=== PATIENT | male | born 1975 | race Caucasian/White ===

== ENCOUNTER → 2016-11-28 | Outpatient (CLI) | payer OTHER ==
[2016-11-28 19:17] LABS: FSH 3.1 mIU/mL (1.5-12.4); LUTEINIZING HORMONE 2.6 mIU/mL (1.7-8.6); PROLACTIN 10.2 ng/mL (4.0-15.2)
== END | disposition home or self-care (01) ==
LOC: LAB 08:58
PROVIDERS: ATTEND Family Medicine
DX: E29.1 Testicular hypofunction (principal)
CPT/HCPCS: 36415; 83001; 83002; 84146

== ENCOUNTER → 2017-07-09 | Day surgery (SDC) | payer OTHER ==
[~2017-07-09] MED LIST: PROPOFOL 20 ML IV; PROPOFOL 40 ML IV
== END ==
LOC: ENDOS 11:06
DX: K63.5 Polyp of colon (principal); K64.0 First degree hemorrhoids; K21.9 Gastro-esophageal reflux disease without esophagitis
CPT/HCPCS: 45380; 88305; J2704

== ENCOUNTER → 2018-04-20 | Outpatient (CLI) | payer OTHER ==
[2017-07-09 13:39] VITALS: BP 104/64
[~2018-04-20] MED LIST changes: +OMEG1CAP6 PO; +PNV#1COM7 PO; -PROPOFOL 20 ML IV; -PROPOFOL 40 ML IV
[2018-04-20 09:13] LABS: BASO % 1 % (0-3); EOS # 0.5 x10^3/uL (0.0-0.7); EOS % 7 % (0-3); HEMATOCRIT 45.7 % (39.0-53.0); LYMPH # 1.6 x10^3/uL (1.0-4.8); LYMPH % 22 % (24-48); MEAN CORPUSCULAR HEMOGLOBIN 30 pg (25-35); MEAN CORPUSCULAR HGB CONC 35 g/dL (31-37); MEAN CORPUSCULAR VOLUME 86 fL (79-100); MONO # 0.5 x10^3/uL (0.0-1.1); MONO % 7 % (0-9); NEUT # 4.7 x10^3uL (1.8-7.7); NEUT % 64 % (31-73); PLATELET COUNT 184 x10^3/uL (140-400); RED BLOOD COUNT 5.34 x10^6/uL (4.30-5.70); RED CELL DISTRIBUTION WIDTH 13.5 % (11.5-14.5); WHITE BLOOD COUNT 7.3 x10^3/uL (4.0-11.0)
[2018-04-20 09:35] LABS: ALBUMIN 4.4 g/dL (3.4-5.0); ALBUMIN/GLOBULIN RATIO 1.2 (1.0-1.7); CREATININE 1.2 mg/dL (0.7-1.3); GFR 67.1; POTASSIUM 4.3 mmol/L (3.5-5.1); TOTAL BILIRUBIN 0.9 mg/dL (0.2-1.0); TOTAL PROTEIN 8.1 g/dL (6.4-8.2)
[2018-04-20 09:37] LABS: CHOLESTEROL/HDL RATIO 3.5
[2018-04-20 09:46] LABS: FREE T4 0.93 ng/dL (0.76-1.46); THYROID STIM HORMONE (TSH) 1.646 uIU/mL (0.358-3.74)
== END | disposition home or self-care (01) ==
LOC: LAB 08:46
PROVIDERS: ATTEND Nurse Practitioner Family
DX: E78.5 Hyperlipidemia, unspecified (principal); R53.83 Other fatigue
CPT/HCPCS: 36415; 80053; 80061; 82306; 82607; 82746; 83540; 83550; 84439; 84443; 85025; 86644; 86645; 86663; 86664

== ENCOUNTER → 2020-03-23 | Outpatient (CLI) | payer OTHER ==
[2017-07-09 13:39] VITALS: BP 104/64
== END ==
LOC: LAB 07:12
PROVIDERS: ATTEND Internal Medicine Pulmonary Disease
DX: R09.81 Nasal congestion (principal); Z20.828 Contact with and (suspected) exposure to other viral communicable diseases
CPT/HCPCS: U0003

== ENCOUNTER → 2020-09-19 | Outpatient (CLI) | payer OTHER ==
[2017-07-09 13:39] VITALS: BP 104/64
[2020-09-19 09:47] LABS: ALBUMIN 4.5 g/dL (3.4-5.0); ALBUMIN/GLOBULIN RATIO 1.5 (1.0-1.7); CALCIUM 8.5 mg/dL (8.5-10.1); CREATININE 1.1 mg/dL (0.7-1.3); GFR 73.1; POTASSIUM 4.2 mmol/L (3.5-5.1); TOTAL BILIRUBIN 0.7 mg/dL (0.2-1.0); TOTAL PROTEIN 7.6 g/dL (6.4-8.2)
[2020-09-19 09:52] LABS: CHOLESTEROL/HDL RATIO 4.5
== END ==
LOC: LAB 08:54
PROVIDERS: ATTEND Family Medicine
DX: E55.9 Vitamin D deficiency, unspecified (principal); F41.1 Generalized anxiety disorder; E78.5 Hyperlipidemia, unspecified
CPT/HCPCS: 36415; 80053; 80061; 82306; 84436; 84443

== ENCOUNTER 2020-10-04 09:13 | Day surgery (SDC) | payer OTHER ==
[~2020-10-04] VITALS: Ht 190.5 cm; Wt 95.0 kg
[~2020-10-04 09:13] MED LIST changes: +ACETAMINOPHEN 500 MG TABLET PO PRN; +HYDROmorphone 2 MG/ML VIAL IVP PRN; +IV RINGERS,LACTATED 1000ML 1,000 ML IV SCH; +MORPHINE SULFATE 2 MG/ML VIAL. IVP PRN; +PROCHLORPERAZINE 10 MG/2 ML VIAL. IVP PRN; +fentaNYL PF VIAL 100 MCG/2 ML VIAL IVP PRN
[2020-10-04 09:30] VITALS: BP 117/69
[2020-10-04] MEDS ORDERED: LIDOCAINE 1% PF 5 ML VIAL. ONE (09:58)
[2020-10-04] MEDS ORDERED: PROPOFOL 10 MG/ML (20ML) VIAL. IV ONE (09:58)
[2020-10-04] MEDS ORDERED: fentaNYL PF VIAL 100 MCG/2 ML VIAL ONE ×2 (09:59→11:28)
[2020-10-04] MEDS ORDERED: SCOPOLAMINE 1.5MG PATCH. TD ONE ×2 (10:26→10:30)
[2020-10-04] MEDS ORDERED: BUPIVACAINE-EPI 0.25% 30 ML VIAL KIT. ONE (10:38)
[2020-10-04] MEDS ORDERED: NEOMY/BACITR/POLYMYXIN OINT PACKET. TP ONE ×2 (10:38→10:52)
[2020-10-04] MEDS ORDERED: BUPIVACAINE-EPI 0.25% 30 ML VIAL KIT. INJ ONE ×2 (10:52)
[2020-10-04] MEDS ORDERED: SEVOFLURANE 31 TO 60 MINUTES. IH ONE (10:54)
[2020-10-04] MEDS ORDERED: ONDANSETRON PF 4 MG/2 ML VIAL. ONE (10:54)
--- NOTE | 2020-10-04 11:02 | PDOC4 ---
Operative Note Operative Note Date: October 042020 at 1100 Preoperative diagnosis: Internal and external hemorrhoids Postoperative diagnosis: Same Procedure: Hemorrhoidectomy Surgeon: Danish Specimen: Hemorrhoid Dictation: Patient is a 45-year-old male with complaints of hemorrhoids with pain and bleeding on occasion and episode of thrombosis. Procedure of hemorrhoidectomy was explained to the patient detail risk benefits were also discussed including bleeding infection alternatives to this procedure also discussed with the patient who seemed to understand and gave verbal and written consent to have the procedure performed. Patient was taken to the operating room placed in the supine position general anesthesia was initiated once patient was sleeping intubated he was placed in lithotomy positioning and his perineum was prepped and draped usual sterile fashion using Betadine scrub and solution. An area around the hemorrhoid at the 7 o'clock position was injected with quarter percent Marcaine with epinephrine the hemorrhoid was grasped with an Allis clamp and the external hemorrhoid as well as internal hemorrhoid this area were excised sharply with the harmonic scalpel providing hemostasis. Hemorrhoid was sent for pathology. Wound was dressed with antibiotic ointment ABD and mesh briefs. Patient was awakened and extubated in the operating room taken to recovery in stable condition all sponge instrument needle counts listed as correct estimated blood loss 5 mL. KARAN KELLOGG MD October 04, 2020 11:02
--- NOTE | 2020-10-04 11:04 | DISCH ---
DISCHARGE INSTRUCTIONS Condition on Discharge Condition on Discharge: Stable Activity After Discharge Activity Instructions for Disc: Avoid exertion Other activity instructions: No strenuous activity for 2 weeks Diet after Discharge Diet after Discharge: Regular Wound Incision Care Other wound/incision instructi: Olga shower in 24 hours Contacting the after DC Call your doctor for: If your condition worsens Follow-Up Follow up with: Dr. Kellogg in 2 weeks KARAN KELLOGG MD October 04, 2020 11:04
[2020-10-04] MEDS ORDERED: OXYC-325 PO (11:51)
[2020-10-04] MEDS ORDERED: oxyCODONE/APAP 5/325 1 TAB TABLET PO ONE ×2 (12:00)
[2020-10-04 12:35] VITALS: BP 110/65
--- NOTE | 2020-10-10 09:11 | PATHOLOGY ---
[facility] Accession Number: [id number] . 01 Material submitted: . hemorrhoids - HEMORRHOIDS . 01 Clinical history: . HEMORRHOIDECTOMY . 02 Diagnosis: Segment of skin and anal mucosa and underlying fibromuscular tissue, hemorrhoidectomy: - Hemorrhoids. (ABEM:toi; 10/09/2020) MBR 10/09/2020 2017 Local . 02 Electronically signed: . Ganesh Yoo MD, Pathologist NPI- [id number] . 01 Gross description: . Received in formalin labeled "Primo, Jose, hemorrhoids" is a portion of leigh-brown wrinkled skin and mucosa measuring 2.7 x 2.5 x 1.7 cm. The specimen is sectioned to reveal hemorrhage and dilated blood vessels on cut surface. 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 [place] [place]06/2020) [facility] 10/06/2020 1347 Local . 02 Pathologist provided ICD-10: K64.9 . 02 CPT . 732804 Specimen Comment: A courtesy copy of this report has been sent to [phone] Specimen Comment: Report sent to Specimen Comment: A duplicate report has been generated due to demographic updates. Performed at: 01 [facility] [address], [place] [id number] MD [place] MD Phone: [phone] Performed at: 02 [facility] [address] [place], [place] [id number] MD Ganesh Yoo MD Phone: [phone]
== END 2020-10-04 13:00 | disposition home or self-care (01) ==
LOC: SURG 09:13
PROVIDERS: ATTEND Surgery
DX: K64.8 Other hemorrhoids (principal); K64.5 Perianal venous thrombosis; K64.9 Unspecified hemorrhoids; K21.9 Gastro-esophageal reflux disease without esophagitis; M19.90 Unspecified osteoarthritis, unspecified site; Z79.899 Other long term (current) drug therapy; Z98.890 Other specified postprocedural states; Z72.89 Other problems related to lifestyle
CPT/HCPCS: 46255; 88304; A4930; A6253; J0690; J0780; J2405; J2704; J3010; J3490

== ENCOUNTER 2021-04-20 21:34 | Emergency (ER) | payer OTHER ==
[~2021-04-20] VITALS: Ht 182.9 cm; Wt 80.0 kg
[~2021-04-20 21:34] MED LIST changes: -ACETAMINOPHEN 500 MG TABLET PO PRN; -HYDROmorphone 2 MG/ML VIAL IVP PRN; -IV RINGERS,LACTATED 1000ML 1,000 ML IV SCH; -MORPHINE SULFATE 2 MG/ML VIAL. IVP PRN; +OXYC-325 PO; -PROCHLORPERAZINE 10 MG/2 ML VIAL. IVP PRN; -fentaNYL PF VIAL 100 MCG/2 ML VIAL IVP PRN
[2021-04-20] MEDS ORDERED: IV NORMAL SALINE 1000ML BAG 1,000 ML IV ONE ×2 (22:15→23:15)
--- NOTE | 2021-04-20 22:19 | ED.ADGEN ---
General Adult EDM: Chief Complaint: RAPID HEART RATE HPI: HPI: Patient is a 45 year old male coming in for palpitations and rapid heart rate. He states he noticed the symptoms about 6 hours prior to evaluation. Is denies any chest pain or pressure but just feels his heart racing. Patient was out hunting earlier and states he not been drinking much water. Patient drank a can of Mountain Dew and a couple sips of an energy drink. Denies any cardiac history. Denies any medical history or regular medication use. Denies any supplement use. Denies any tobacco, alcohol, or drugs. Has had his Covid vaccines and booster, has had his influenza vaccine. Denies any recent illness. Denies any vomiting or diarrhea Review of Systems: Review of Systems: All other systems within normal limits except for as noted in the HPI Current Medications: Current Medications Medications (Trade) Dose Ordered Sig/Lee Start Time Stop Time Status Last Admin Dose Admin Info (CONTRAST GIVEN -- Rx MONITORING) 1 each PRN DAILY PRN 04/20/21 23:30 04/22/21 23:29 Iohexol (Omnipaque 350 Mg/ml) 100 ml 1X ONCE 04/20/21 23:30 04/20/21 23:31 DC 04/20/21 23:38 100 ML Sodium Chloride 1,000 ml @ 1,000 mls/hr 1X ONCE 04/20/21 23:15 04/21/21 00:14 DC 04/20/21 00:07 1,000 MLS/HR Allergies: Allergies: Allergies Coded Allergies Type Severity Reaction Last Updated Verified No Known Drug Allergies 10/04/20 No Physical Exam: PE: Constitutional: Well developed, well nourished, no acute distress, non-toxic appearance. [] HENT: Normocephalic, atraumatic, bilateral external ears normal, nose normal. [] Eyes: PERRLA, conjunctiva normal, no discharge. [] Neck: No rigidity, supple, no stridor. [] Cardiovascular: Cardiac, regular rhythm, brisk cap refill [] Lungs & Thorax: Non labored symmetric respirations, no tachypnea or respiratory distress [] Abdomen: Soft, nondistended. Skin: Warm, dry, no erythema, no rash. [] Back: Unremarkable Extremities: No deformities, range of motion grossly intact, no lower extremity edema [] Neurologic: Alert and oriented X 3, no focal deficits noted. [] Psychologic: Affect normal, judgement normal, mood normal. [] Current Patient Data: Labs: Laboratory Tests Test 04/20/21 22:10 04/20/21 22:50 04/20/21 23:35 White Blood Count 14.5 x10^3/uL (4.0-11.0) H Red Blood Count 5.35 x10^6/uL (4.30-5.70) Hemoglobin 15.4 g/dL (13.0-17.5) Hematocrit 45.5 % (39.0-53.0) Mean Corpuscular Volume 85 fL (79-100) Mean Corpuscular Hemoglobin 29 pg (25-35) Mean Corpuscular Hemoglobin Concent 34 g/dL (31-37) Red Cell Distribution Width 14.5 % (11.5-14.5) Platelet Count 260 x10^3/uL (140-400) Neutrophils (%) (Auto) 71 % (31-73) Lymphocytes (%) (Auto) 17 % (24-48) L Monocytes (%) (Auto) 9 % (0-9) Eosinophils (%) (Auto) 2 % (0-3) Basophils (%) (Auto) 1 % (0-3) Neutrophils # (Auto) 10.3 x10^3/uL (1.8-7.7) H Lymphocytes # (Auto) 2.5 x10^3/uL (1.0-4.8) Monocytes # (Auto) 1.3 x10^3/uL (0.0-1.1) H Eosinophils # (Auto) 0.3 x10^3/uL (0.0-0.7) Basophils # (Auto) 0.1 x10^3/uL (0.0-0.2) D-Dimer (Sarah) 0.38 ug/mlFEU (0.00-0.50) Sodium Level 142 mmol/L (136-145) Potassium Level 3.5 mmol/L (3.5-5.1) Chloride Level 104 mmol/L (98-107) Carbon Dioxide Level 25 mmol/L (21-32) Anion Gap 13 (6-14) Blood Urea Nitrogen 16 mg/dL (8-26) Creatinine 1.0 mg/dL (0.7-1.3) Estimated GFR (Cockcroft-Gault) 81.6 BUN/Creatinine Ratio 16 (6-20) Glucose Level 91 mg/dL (70-99) Calcium Level 8.9 mg/dL (8.5-10.1) Phosphorus Level 4.0 mg/dL (2.6-4.7) Magnesium Level 2.3 mg/dL (1.8-2.4) Total Bilirubin 1.5 mg/dL (0.2-1.0) H Aspartate Amino Transferase (AST) 15 U/L (15-37) Alanine Aminotransferase (ALT) 29 U/L (16-63) Alkaline Phosphatase 68 U/L (46-116) Troponin I High Sensitivity 27 ng/L (4-75) UO-Jcb-T-Type Natriuretic Peptide 42 pg/mL (0-124) Total Protein 7.3 g/dL (6.4-8.2) Albumin 4.0 g/dL (3.4-5.0) Albumin/Globulin Ratio 1.2 (1.0-1.7) Thyroid Stimulating Hormone (TSH) 2.276 uIU/mL (0.358-3.74) Lactic Acid Level 0.7 mmol/L (0.4-2.0) Urine Collection Type Unknown Urine Color Yellow Urine Clarity Cloudy Urine pH 5.5 (<5.0-8.0) Urine Specific Comer <=1.005 (1.000-1.030) Urine Protein Negative mg/dL (NEG-TRACE) Urine Glucose (UA) Negative mg/dL (NEG) Urine Ketones (Stick) Trace mg/dL (NEG) Urine Blood Negative (NEG) Urine Nitrite Negative (NEG) Urine Bilirubin Negative (NEG) Urine Urobilinogen Dipstick 0.2 mg/dL (0.2 mg/dL) Urine Leukocyte Esterase Negative (NEG) Urine RBC 0 /HPF (0-2) Urine WBC 0 /HPF (0-4) Urine Squamous Epithelial Cells None /LPF Urine Bacteria 0 /HPF (0-FEW) Urine Mucus Slight /LPF Urine Opiates Screen Neg (NEG) Urine Methadone Screen Neg (NEG) Urine Barbiturates Neg (NEG) Urine Phencyclidine Screen Neg (NEG) Urine Amphetamine/Methamphetamine Neg (NEG) Urine Benzodiazepines Screen Neg (NEG) Urine Cocaine Screen Neg (NEG) Urine Cannabinoids Screen Neg (NEG) Urine Ethyl Alcohol Neg (NEG) Laboratory Tests 04/20/21 22:10 Laboratory Tests 04/20/21 22:10 Vital Signs: Vital Signs Date Time Temp Pulse Resp B/P (MAP) Pulse Ox O2 Delivery O2 Flow Rate FiO2 04/20/21 21:50 98.5 142 22 102/75 (84) 98 Room Air 98.5 EKG: EKG: Tachycardic rhythm, 140 bpm, normal axis, no ST elevation or depression [] Heart Score: C/O Chest Pain: No HEART Score for Chest Pain: HEART Score for Chest Pain Response (Comments) Value History Slighlty/Non-Suspicious 0 ECG Nonspecific Repolarizatio 1 Age < 45 0 Risk Factors No Risk Factors 0 Troponin < Normal Limit 0 Total 1 Risk Factors: Risk Factors: DM, Current or recent (<one month) smoker, HTN, HLP, family history of CAD, obesity. Risk Scores: Score 0 - 3: 2.5% MACE over next 6 weeks - Discharge Home Score 4 - 6: 20.3% MACE over next 6 weeks - Admit for Clinical Observation Score 7 - 10: 72.7% MACE over next 6 weeks - Early Invasive Strategies Radiology/Procedures: Radiology/Procedures: [facility] [address] [place], [place] [id number] IMAGING REPORT Signed PATIENT: JOY MILLER ACCOUNT: [id number] : 1975 LOCATION: ER AGE: 45 SEX: M EXAM STATUS: REG ER ORD. PHYSICIAN: DEZ ARAMBULA MD REASON: palpitations, chest pain, OMNI 350 100 ML IV PROCEDURE: CT ANGIOGRAPHY CHEST CTA CHEST INDICATION: palpitations, chest pain Comparison: None. TECHNIQUE: Following the uneventful administration of intravenous contrast, 100 cc Omnipaque 350, axial CT sections were obtained through the lungs and upper abdomen. Multiplanar reconstructions and MIP images were obtained. PQRS compliance statement: One or more of the following individualized dose reduction techniques were utilized for this examination: 1. Automated exposure control 2. Adjustment of the mA and/or kV according to patient size 3. Use of iterative reconstruction technique FINDINGS: Pulmonary arteries: No evidence of pulmonary thromboembolic disease. Lungs and Airways: No pulmonary mass or consolidation. No abnormality of the central airways. Pleura: The pleural spaces are normal. Heart and Mediastinum: The visualized thyroid is normal in size and attenuation. No axillary or supraclavicular lymphadenopathy. No mediastinal, hilar or retrocrural lymphadenopathy. The heart and pericardium are within normal limits. The great vessels of the thorax are normal. Abdomen: Limited images through the upper abdomen show no abnormality of the visualized organs. Bones and Soft Tissues: The visualized bones and chest wall soft tissues are within normal limits. IMPRESSION: 1. No evidence of pulmonary thrombolic disease. 2. No pulmonary mass or consolidation Electronically signed by: Rivera Figueroa MD (04/20/2021 11:48 PM) [facility] DICTATED and SIGNED BY: RIVERA FIGUEROA MD DATE: 04/20/21 [id number] [] Course & Med Decision Making: Course & Med Decision Making Pertinent Labs and Imaging studies reviewed. (See chart for details) Patient originally presented in A. fib with a heart rate of 140 bpm. Fluid bolus initiated and during bolus patient's heart rate began to spontaneously convert to sinus rhythm with episodes of A. fib. After liter fluid patient was in sinus rhythm with a heart rate in the 80s. Gave a second liter and patient feeling well heart rate is staying in sinus rhythm in the low 80s. Discussed admission for observation versus return with follow-up and return precautions. Patient states he would rather go home and feels better. States he would like to follow-up with cardiology and will call tomorrow for an appointment. Patient voices understanding of return precautions. [] Dragon Disclaimer: Dragcameron Disclaimer: This electronic medical record was generated, in whole or in part, using a voice recognition dictation system. Departure Departure Impression: Primary Impression: Paroxysmal atrial fibrillation with RVR Disposition: HOME / SELF CARE / HOMELESS Condition: IMPROVED Referrals: GUILHERME KRAUS MD (PCP) Patient Instructions: Atrial Fibrillation Additional Instructions: Follow-up with cardiology, return to emergency department if symptoms return DEZ ARAMBULA MD Apr 20, 2021 22:18
[2021-04-20 22:23] LABS: BASO # 0.1 x10^3/uL (0.0-0.2); BASO % 1 % (0-3); EOS # 0.3 x10^3/uL (0.0-0.7); EOS % 2 % (0-3); HEMATOCRIT 45.5 % (39.0-53.0); HEMOGLOBIN 15.4 g/dL (13.0-17.5); LYMPH # 2.5 x10^3/uL (1.0-4.8); LYMPH % 17 % (24-48); MEAN CORPUSCULAR HEMOGLOBIN 29 pg (25-35); MEAN CORPUSCULAR HGB CONC 34 g/dL (31-37); MEAN CORPUSCULAR VOLUME 85 fL (79-100); MONO # 1.3 x10^3/uL (0.0-1.1); MONO % 9 % (0-9); NEUT # 10.3 x10^3/uL (1.8-7.7); NEUT % 71 % (31-73); PLATELET COUNT 260 x10^3/uL (140-400); RED BLOOD COUNT 5.35 x10^6/uL (4.30-5.70); RED CELL DISTRIBUTION WIDTH 14.5 % (11.5-14.5); WHITE BLOOD COUNT 14.5 x10^3/uL (4.0-11.0)
[2021-04-20 22:37] LABS: CALCIUM 8.9 mg/dL (8.5-10.1); GFR 81.6; POTASSIUM 3.5 mmol/L (3.5-5.1)
[2021-04-20 22:43] LABS: ALBUMIN/GLOBULIN RATIO 1.2 (1.0-1.7); MAGNESIUM 2.3 mg/dL (1.8-2.4); TOTAL BILIRUBIN 1.5 mg/dL (0.2-1.0); TOTAL PROTEIN 7.3 g/dL (6.4-8.2)
[2021-04-20] MEDS ORDERED: CONTRAST GIVEN. MC PRN (23:30)
[2021-04-20] MEDS ORDERED: IOHEXOL 350 MG/ML 100 ML VIAL. IV ONE (23:30)
--- NOTE | 2021-04-20 23:50 | RAD ---
CTA CHEST INDICATION: palpitations, chest pain Comparison: None. TECHNIQUE: Following the uneventful administration of intravenous contrast, 100 cc Omnipaque 350, axi al CT sections were obtained through the lungs and upper abdomen. Multiplanar reconstructions and MIP images were obtained. PQRS compliance statement: One or more of the following individualized dose reduction techniques were utilized for this examinat ion: 1. Automated exposure control 2. Adjustment of the mA and/or kV according to patient size 3. Use of iterative reconstruction technique FINDINGS: Pulmonary arteries: No evidence of pulmonary thromboembolic disease. Lungs and Airways: No pulmonary mass or consolidation. No abnormality of the central airways. Pleura: The pleural spaces are normal. Heart and Mediastinum: The visualized thyroid is normal in size and attenuation. No axillary or supra clavicular lymphadenopathy. No mediastinal, hilar or retrocrural lymphadenopathy. The heart and peric ardium are within normal limits. The great vessels of the thorax are normal. Abdomen: Limited images through the upper abdomen show no abnormality of the visualized organs. Bones and Soft Tissues: The visualized bones and chest wall soft tissues are within normal limits. IMPRESSION: 1. No evidence of pulmonary thrombolic disease. 2. No pulmonary mass or consolidation Electronically signed by: Jw Figueroa MD (04/20/2021 11:48 PM) [facility] CENTERGarrett
[2021-04-20 23:52] LABS: BILIRUBIN,URINE NEGATIVE (NEG); CLARITY,URINE CLOUDY; COLOR,URINE YELLOW; NITRITE,URINE NEGATIVE (NEG); PH,URINE 5.5 (<5.0-8.0); PROTEIN,URINE NEGATIVE (NEG-TRACE); UROBILINOGEN,URINE 0.2 mg/dL (0.2 mg/dL)
[2021-04-20 23:56] LABS: BARBITURATES NEG (NEG); BENZODIAZEPINES NEG (NEG); CANNABINOIDS NEG (NEG); COCAINE NEG (NEG); METHADONE NEG (NEG); OPIATES NEG (NEG); PHENCYCLIDINE NEG (NEG)
[2021-04-20 23:59] LABS: BACTERIA,URINE 0 /HPF (0-FEW); RBC,URINE 0 /HPF (0-2); WBC,URINE 0 /HPF (0-4)
[2021-04-21 00:01] LABS: AMPHETAMINE/METHAMPHETAMINE NEG (NEG)
[2021-04-21 01:00] VITALS: BP 115/75
--- NOTE | 2021-04-21 06:49 | EKG ---
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
== END 2021-04-21 01:13 | disposition home or self-care (01) ==
LOC: ER 21:34
DX: I48.0 Paroxysmal atrial fibrillation (principal)
CPT/HCPCS: 36415; 71275; 80053; 80307; 81001; 83605; 83735; 83880; 84100; 84443; 84484; 85025; 85379; 93005; 96360; 96361; 99285; J7030; Q9967